=== PATIENT | male | born 1990 | race American Indian/Alaskan Native ===

== ENCOUNTER 2018-03-05 09:40 | Emergency (ER) | payer OTHER ==
--- NOTE | 2018-03-05 11:33 | Emergency Department Report ---
ED Back Pain/Injury HPI - General Chief Complaint: Back Pain/Injury Stated Complaint: BACK PAIN Time Seen by Provider: 03/05/18 11:05 Source: patient Limitations: No Limitations - History of Present Illness Initial Comments: This is a 27-year-old -[place] male who presents with right-sided back pain that started this morning while he was at work. 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 Patient reports pain is aggravated with movement and 8 out of 10 on pain scale. Patient states he continued working as he continued to lift boxes the pain intensified. Denies numbness or tingling, nausea or vomiting, change in bowel or voiding pattern, dysuria, frequency, urgency, numbness or tingling, bruising, and swelling. MD Complaint: back pain Onset/Timin -: hour(s) Time: 08:30 Similar Symptoms Previously: No Place: work Radiation: none Severity: moderate Severity scale (0 -10): 8 Quality: sharp, aching Consistency: intermittent Improves With: immobilization Worsens With: movement, walking Context: while lifting Associated Symptoms: denies other symptoms - Related Data Previous Rx's Medication Instructions Recorded Last Taken Type Cyclobenzaprine HCl [Flexeril 5 MG 5 mg PO TID #15 tab 03/05/18 Unknown Rx TAB] Ibuprofen [Motrin 600 MG tab] 600 mg PO Q8H PRN #15 tablet 03/05/18 Unknown Rx Allergies Allergy/AdvReac Type Severity Reaction Status Date / Time No Known Allergies Allergy Unverified 03/05/18 09:55 ED Review of Systems ROS: Stated complaint: BACK PAIN Other details as noted in HPI Constitutional: denies: chills, fever Respiratory: denies: cough, shortness of breath, wheezing Cardiovascular: denies: chest pain, palpitations Gastrointestinal: denies: abdominal pain, nausea, vomiting, diarrhea Musculoskeletal: back pain (right side back pain). denies: joint swelling, arthralgia Skin: denies: rash, lesions Neurological: denies: headache, weakness, numbness, paresthesias Psychiatric: denies: anxiety, depression ED Back Pain Physical Exam - Exam General: Vital signs noted. No distress. Alert and acting appropriately. Back/Abdomen: Yes Perithoracic Tenderness (on right with palpation), No Abdominal Tenderness, No Perilumbar Tenderness, No Sacroiliac Tenderness, No Flank Tenderness, No Straight Leg Raise Pain Neuro: Yes Normal Sensation, Yes Normal DTR's, Yes Normal Gait, No Motor Weakness ED Course Vital Signs 03/05/18 09:55 Temperature 98.3 F Pulse Rate 53 L Respiratory 16 Rate Blood Pressure 137/88 O2 Sat by Pulse 100 Oximetry Ed Back Pain Tests - Tests Tests: Abnormal X Rays ED Medical Decision Making - Radiology Data Radiology results: report reviewed, image reviewed THORACIC SPINE, 2 VIEWS: HISTORY: back pain. Normal bone mineralization. No evidence for compression deformity, malalignment, or bone lesion. The posterior ribs are intact. Mild anterior spurring is identified throughout the thoracic region. The paraspinal soft tissues are within normal limits. IMPRESSION: Mild thoracic spondylosis. No acute injury is identified on x-ray. If further evaluation is needed, CT could be obtained. - Medical Decision Making This is a 27 y.o. male presents with thoracic pain on the right that started today. Patient was examined by me. Physical findings susceptible of muscle strain. Xray of L-spine obtained and dictated by radiologist. Mild thoracic spondylosis. No acute injury is identified on x-ray. If further evaluation is needed, CT could be obtained. Patient informed of results. Referral to orthopedic surgery. Start ibuprofen and cyclobenzaprine for pain. Plan discussed with patient to discharge home and treat outpatient. He agrees with ER plan. Patient discharged home in stable condition. Follow up with PCP and orthopedic surgery in 2-3 days. Critical care attestation.: If time is entered above; I have spent that time in minutes in the direct care of this critically ill patient, excluding procedure time. ED Disposition Clinical Impression: Muscle strain Back pain Qualifiers: Back pain location: thoracic back pain Chronicity: acute Back pain laterality: right Qualified Code(s): M54.6 - Pain in thoracic spine Spondylosis, thoracic Qualifiers: Spinal osteoarthritis complication: with radiculopathy Qualified Code(s): M47.24 - Other spondylosis with radiculopathy, thoracic region Disposition: TO HOME OR SELFCARE Is pt being admited?: No Does the pt Need Aspirin: No Condition: Stable Instructions: Muscle Strain (ED), Back Pain (ED), Lumbar Radiculopathy (ED) Additional Instructions: Rest Use ice or heat on affected area for 20 minutes and off for 2 hours. Take pain medication as needed for pain. Don't drive or operate heavy machinery while taking muscle relaxers because they may cause drowsiness. Follow up with Primary Care Provider in 2-3 days. Prescriptions: Cyclobenzaprine HCl [Flexeril 5 MG TAB] 5 mg PO TID #15 tab Ibuprofen [Motrin 600 MG tab] 600 mg PO Q8H PRN #15 tablet PRN Reason: Pain Referrals: [facility] [Outside] - [facility] - [facility]5 Days KHUSHBU MAYORGA MD [Staff Physician] - 3-5 Days [facility] [Provider Group] - 3-5 Days Time of Disposition: 14:51 Print Language: MAORI
--- NOTE | 2018-03-05 14:07 | XRay Report ---
THORACIC SPINE, 2 VIEWS: HISTORY: back pain. Normal bone mineralization. No evidence for compression deformity, malalignment, or bone lesion. The posterior ribs are intact. Mild anterior spurring is identified throughout the thoracic region. The paraspinal soft tissues are within normal limits. IMPRESSION: Mild thoracic spondylosis. No acute injury is identified on x-ray. If further evaluation is needed, CT could be obtained.
[2018-03-05 15:06] VITALS: BP 128/62
== END 2018-03-05 15:05 | disposition home or self-care (01) ==
LOC: ED 09:40
DX: M47.894 Other spondylosis, thoracic region (principal); S29.012A Strain of muscle and tendon of back wall of thorax, initial encounter; X50.9XXA Other and unspecified overexertion or strenuous movements or postures, initial encounter; Y93.89 Activity, other specified; Y92.89 Other specified places as the place of occurrence of the external cause; Y99.8 Other external cause status
CPT/HCPCS: 72070; 99283